=== PATIENT | male | born 1935 | race Caucasian/White ===

== ENCOUNTER → 2016-07-23 | Outpatient (CLI) | payer MEDICARE, BC ==
[~2016-07-23] MED LIST: AMBIEN 10MG10 MG PO; ARICEPT10 MG PO; ASPIRIN E.C. 8181 MG PO; ATIVAN 0.50.5 MG/TAB PO; BENADRYL25 M2 PO; CALCIUM CARBONA1 TA2 PO; CELEBREX 200MG200 MG PO; CIPRO 500MG TA500 MG PO; COLACE 100100 MG/CAP PO; CYMBALTA 30MG30 MG PO; DULCOLAX S10 MG/SUPP RC; EPA FISH OIL1000 MG PO; FERRATE325 MG PO; FISH OIL1 IU PO; GLUCOSAMINE & C1 CAP PO; GLYCERIN SUPPOS1 SU4 RC; K-DUR 2020 MEQ PO; LIDODERM PATCH TP; MILK OF MAGNESI30 ML PO; MIRALAX PA17 GM/Dose PO; MULTIPLE VITAMI1 CAP PO; MULTIPLE VITAMI1 TAB PO; MYLANTA 150 ML150 M1 PO; NAMENDA 10MG TA10 MG PO; NORCO 325 MG-51 TAB PO; NORCO 325 MG-7.1 TAB PO; PHENERGAN 25 TA25 MG PO; PHOSPHA 250 NEU1 TAB PO; RIFAMPIN IV; RIMACTANE300 MG PO; ROXICODONE 55 MG/TAB PO; SENOKOT S 50 MG1 TAB PO; SINEMET CR 50 M1 TER PO; THERAGRAN-M1 TA1 PO; TYLENOL 500MG500 MG PO; TYLENOL EXTRA500 M1 PO; TYLENOL SU650 MG/SUP RC; ULTRAM 50MG TAB50 MG PO; UNABLE; VANCOMYCIN 11 G/VIAL IV; VITAMIN C PURE500 M1 PO; VITAMIN D1000 IU PO; VITAMIN D31000 IU PO; VITAMIN D32000 IU PO; XARELTO10 MG PO; [UNRECOGNIZED DRUG - OTHER] IV
[2016-07-23 20:53] LABS: PH 7 (5-8); SQUAMOUS EPITHELIAL None Seen /hpf; URINE APPEARANCE Clear; URINE BACTERIA None Seen /hpf; URINE BILIRUBIN Negative (NEGATIVE); URINE BLOOD 3+ (NEGATIVE); URINE COLOR Yellow; URINE GLUCOSE Negative (NEGATIVE); URINE KETONE Negative (NEGATIVE); URINE RBC >50 /hpf
== END ==
LOC: ZCOL.LAB 20:42
PROVIDERS: Nurse Practitioner Family
DX: N39.0 Urinary tract infection, site not specified (principal)